=== PATIENT | female | born 1995 | race Caucasian/White ===

== ENCOUNTER 2018-05-26 14:02 | Emergency (ER) | payer MEDICAID ==
[2018-05-26] MEDS ORDERED: Ketorolac 15 MG/ML SDV IVPUSH ONE (14:28)
--- NOTE | 2018-05-26 14:37 | EDM.PDOC ---
ED HPI GENERAL MEDICAL PROBLEM - General Chief Complaint: General Stated Complaint: dental pain Time Seen by Provider: 05/26/18 14:20 Source of Information: Reports: Patient History Limitations: Reports: No Limitations - History of Present Illness INITIAL COMMENTS - FREE TEXT/NARRATIVE: Patient comes into the emergency department with dental pain. Patient states that she just is returning back from [place] where she was actually at the [facility] emergency department for dental pain. At the emergency department the gave her a "shot in the mouth" help with the discomfort. They also gave her clindamycin 300 mg 3 times a day. Rectal medication was for her to follow-up with her dentist next week. Patient states on the drive home from [place] to [place] her pain had returned and she stopped here at the emergency department to get her pain under control. Pt denies any fevers, chest pain, shortness breath, lightheadedness, nausea vomiting, or swelling in the extremity. Patient has not filled her prescription of clindamycin yet. She also has not been able to make an appointment with her dentist yet. Onset: Sudden - Related Data Allergies Allergy/AdvReac Type Severity Reaction Status Date / Time azithromycin Allergy Rash Verified 05/26/18 14:30 [From Zithromax Z-Eze] Home Meds: Home Meds Ketorolac [Toradol] 10 mg PO TID PRN #15 tab 05/26/18 [Rx] ED ROS GENERAL - Review of Systems Review Of Systems: See Below Constitutional: Reports: No Symptoms HEENT: Reports: Dental Pain Respiratory: Reports: No Symptoms Cardiovascular: Reports: No Symptoms Endocrine: Reports: No Symptoms GI/Abdominal: Reports: No Symptoms : Reports: No Symptoms Musculoskeletal: Reports: No Symptoms Skin: Reports: No Symptoms Neurological: Reports: No Symptoms Psychiatric: Reports: No Symptoms Hematologic/Lymphatic: Reports: No Symptoms Immunologic: Reports: No Symptoms ED EXAM, GENERAL - Physical Exam Exam: See Below Exam Limited By: No Limitations General Appearance: Alert, WD/WN, No Apparent Distress Nose: Normal Inspection, Normal Mucosa Throat/Mouth: Other (dental caries noted. left lower gum 2 molar- decay present. inflammation around the tooth present. No bleeding, increase warmth, or swelling noted ) Head: Atraumatic, Normocephalic Neck: Normal Inspection, Supple, Non-Tender, Full Range of Motion Respiratory/Chest: No Respiratory Distress, No Accessory Muscle Use Cardiovascular: Normal Peripheral Pulses Extremities: Normal Inspection, Normal Range of Motion, No Pedal Edema Neurological: Alert, Oriented Psychiatric: Normal Affect, Normal Mood Skin Exam: Warm, Dry, Intact, Normal Color Course - Orders/Labs/Meds Meds: Medications Discontinued Medications Generic Name Dose Route Start Last Admin Trade Name Freq PRN Reason Stop Dose Admin Ketorolac Tromethamine 15 mg 05/26/18 14:28 Toradol IVPUSH 05/26/18 14:29 ONETIME ONE Departure - Departure Time of Disposition: 14:50 Disposition: Home, Self-Care 01 Condition: Good Clinical Impression: Pain due to dental caries - Discharge Information *PRESCRIPTION DRUG MONITORING PROGRAM REVIEWED*: Not Applicable *COPY OF PRESCRIPTION DRUG MONITORING REPORT IN PATIENT ELENA: Not Applicable Prescriptions: Ketorolac [Toradol] 10 mg PO TID PRN #15 tab PRN Reason: Pain Instructions: Preventive Dental Care, Adult, Pain Medicine Instructions Additional Instructions: 1. Take your antibiotics you were prescribed from [facility] 2. Can take the anti-inflammatory as needed for pain 3. Can use ice to help with the discomfort 4. Reduce hot or cold items directly in the mouth 5. Reduce smoking for that can cause further pain and discomfort to the tooth 6. Follow up with your dentist within the next week for further recommendations 7. Call with any questions or concerns. - Assessment/Plan Assessment:: 1. dental pain Plan: 1. [place] reviewed Pt has had two pain medication fills in April. 2. Toradol IM given in ER 3. Education provided regarding filling her antibiotic medication and completing it as recommended 4. Pt is advised to follow up with Dentist to have that tooth further evaluated 5. All questions and concerns addressed.
[2018-05-26] MEDS: Ketorolac 30 MG/ML SDV IM ONE (14:45)
== END 2018-05-26 14:47 | disposition home or self-care (01) ==
LOC: VM.ED 14:02
DX: K02.9 Dental caries, unspecified (principal); Z88.1 Allergy status to other antibiotic agents
CPT/HCPCS: 96372; 99282; J1885